=== PATIENT | female | born 1965 | race Caucasian/White ===

== ENCOUNTER → 2020-11-20 | Outpatient (CLI) | payer OTHER ==
[~2020-11-20] MED LIST: BIRTH CONTROL PILL PO; CLARITIN10 MG PO; IBUPROFEN 200200 M1 PO; OMEPRAZOLE 20 M20 M1 PO
[2020-11-20 14:23] LABS: ABSOLUTE NEUTROPHILS 4.5 thou/uL (1.4-8.2); BASOPHILS 0.6 % (0.0-2.0); EOSINOPHILS 5.3 % (0.0-3.0); HEMATOCRIT 38.9 % (37.0-47.0); LYMPHOCYTES 26.5 % (24.0-44.0); MCH 29.6 pg (26.0-34.0); MCHC 33.3 g/dL (28.0-37.0); MCV 88.6 fL (80.0-100.0); MONOCYTES 6.9 % (1.0-8.0); PLATELET COUNT 227 thou/uL (150-400); POLYS 60.7 % (36.0-66.0); RBC 4.39 mil/uL (4.20-5.00); RDW 13.2 % (10.5-14.5); WBC 7.4 thou/uL (4.0-11.0)
== END ==
LOC: LAB 11:50
PROVIDERS: ATTEND Orthopaedic Surgery
DX: M25.561 Pain in right knee (principal)

== ENCOUNTER → 2020-12-11 | Outpatient (CLI) | payer OTHER | LOC: NUC 12-07 12:25 | PROVIDERS: ATTEND Orthopaedic Surgery | DX: M25.561 Pain in right knee (principal); Z96.651 Presence of right artificial knee joint ==

== ENCOUNTER → 2021-04-19 | Outpatient (CLI) | payer OTHER ==
[~2021-04-19] MED LIST changes: +RHINOCORT ALL8.43 ML INH
[2021-04-19 13:15] LABS: HEMATOCRIT 40.6 % (37.0-47.0); HEMOGLOBIN 13.7 gm/dL (12.0-15.0); MCH 29.7 pg (26.0-34.0); MCHC 33.6 g/dL (28.0-37.0); MCV 88.4 fL (80.0-100.0); RBC 4.6 mil/uL (4.20-5.00); RDW 13.5 % (10.5-14.5); WBC 6.9 thou/uL (4.0-11.0)
[2021-04-19 13:28] LABS: ALBUMIN 3.9 g/dL (3.4-5.0); CALCIUM 8.6 mg/dL (8.5-10.1); CREATININE 0.9 mg/dL (0.6-1.0); INR 0.95; PROTIME 10.4 Seconds (10.5-12.1)
[2021-04-19 13:29] LABS: URINE BILIRUBIN NEGATIVE (Negative); URINE BLOOD NEGATIVE (Negative); URINE CLARITY CLEAR; URINE COLOR YELLOW; URINE GLUCOSE-RANDOM* NEGATIVE (Negative); URINE KETONES NEGATIVE (Negative); URINE LEUKOCYTES-REFLEX NEGATIVE (Negative); URINE NITRITE-REFLEX NEGATIVE (Negative); URINE PROTEIN (DIPSTICK) NEGATIVE (Negative); URINE UROBILINOGEN 0.2 E.U./dl (0.2-1.0)
--- NOTE | 2021-04-19 15:47 | EKG ---
[address] [place] [address] ELECTROCARDIOGRAM REPORT Name: TARAH SEVILLA Room #: REG PADMINI Mcnally#: [id number] Admission: 04/19/21 Attend Phys: Jose De Jesus Burt MD Discharge: Date of : 61 Report #: [id number] [facility] Test Date: 2021-04-19 Test Time: 12:55:30 Pat Name: TARAH SEVILLA Department: Room: Gender: F Desk Top Publisher: Tatyana PUENTE : 1965 Requested By: Jose De Jesus Burt Order Number: [id number] MD: Donnie Espinosa Measurements Intervals [place] Rate: 86 P: 57 DC: 136 QRS: -28 QRSD: 88 T: 36 QT: 366 QTc: 438 Interpretive Statements Sinus rhythm Borderline left axis deviation No previous ECG available for comparison Electronically Signed On 04-19-2021 15:47:11 CDT by Donnie Espinosa [email or web address] <ELECTRONICALLY SIGNED> By: Donnie Espinosa MD, [facility] 04/19/21 1547 1255 1255 Donnie Espinosa MD, FACC /EPI
== END ==
LOC: PAC 09:45
PROVIDERS: ATTEND Orthopaedic Surgery
DX: Z01.812 Encounter for preprocedural laboratory examination (principal); Z01.810 Encounter for preprocedural cardiovascular examination; Z96.651 Presence of right artificial knee joint; Z79.01 Long term (current) use of anticoagulants

== ENCOUNTER → 2021-06-05 | Outpatient (CLI) | payer OTHER ==
[2021-06-05 08:40] LABS: HEMOGLOBIN 13.5 gm/dL (12.0-15.0); MCH 30.4 pg (26.0-34.0); MCHC 34.7 g/dL (28.0-37.0); MCV 87.8 fL (80.0-100.0); RBC 4.45 mil/uL (4.20-5.00); RDW 13.1 % (10.5-14.5); WBC 6.8 thou/uL (4.0-11.0)
[2021-06-05 08:42] LABS: URINE BILIRUBIN NEGATIVE (Negative); URINE BLOOD TRACE (Negative); URINE CLARITY CLEAR; URINE COLOR YELLOW; URINE GLUCOSE-RANDOM* NEGATIVE (Negative); URINE KETONES NEGATIVE (Negative); URINE LEUKOCYTES-REFLEX NEGATIVE (Negative); URINE NITRITE-REFLEX NEGATIVE (Negative); URINE PROTEIN (DIPSTICK) NEGATIVE (Negative); URINE SPECIFIC GRAVITY 1.025 (1.005-1.035); URINE UROBILINOGEN 0.2 E.U./dl (0.2-1.0)
[2021-06-05 08:56] LABS: ALBUMIN 3.6 g/dL (3.4-5.0); CALCIUM 8.5 mg/dL (8.5-10.1); CREATININE 0.9 mg/dL (0.6-1.0); POTASSIUM 4.3 mmol/L (3.5-5.1)
[2021-06-05 09:15] LABS: INR 0.94; PROTIME 10.3 Seconds (10.5-12.1)
== END ==
LOC: PAC 07:48
PROVIDERS: ATTEND Orthopaedic Surgery
DX: Z01.812 Encounter for preprocedural laboratory examination (principal); Z96.651 Presence of right artificial knee joint; Z79.899 Other long term (current) drug therapy

== ENCOUNTER 2021-06-18 10:25 | Inpatient (IN) | payer OTHER ==
[~2021-06-18] VITALS: Ht 157.5 cm; Wt 90.7 kg
[2021-06-18 11:43] VITALS: BP 152/70
[2021-06-18 16:34] VITALS: BP 142/84
[2021-06-18 16:52] VITALS: BP 124/76
[2021-06-18 18:26] VITALS: BP 135/85
--- NOTE | 2021-06-18 18:30 | NUR ---
PT RECEIVED FROM THE [facility] AT 1630 VERY SLEEPY BUT EASILY AROUSABLE. DENIED PAIN OR NAUSEA. TOOK SIPS OF WATER. ADMISSION COMPLETED. DNSG DRY. ICE PACK ON. IV FLUIDS. FRIEND AT BEDSIDE.
[2021-06-18 19:21] VITALS: BP 138/77
--- NOTE | 2021-06-19 02:52 | NUR ---
PT CARE ASSUMED WITH PT IN BED SLEEPING.PT IS A/O X4.PT IS UP WITH X2 ASSIST.INCISION DRESSING ON RT KNEE I/C/D WITH POLAR PACK AND SALOMÓN DRESSING.PT PAIN MANAGED WITH NORCO AND SCHEDULE MORPHINE.FALL PRECAUTIONS IN PLAVE.IV ACCESS ON RT HAND WITH D5 0.45NS @100CC/HR.PT WAS ON 2L OF O2 NC AFTER SURGERY.WILL CONTINUE TO MONITOR PER POC
[2021-06-19 05:30] VITALS: BP 115/70
--- NOTE | 2021-06-19 07:30 | O ---
[facility] [place] [address] OPERATIVE REPORT Name: TARAH SEVILLA Room #: 447-P [facility] [place] M.R.#: [id number] Admission: 06/18/21 Attend Phys: Jose De Jesus Burt MD Discharge: Date of : 61 Report #: [id number] THIS REPORT FOR: cc: Korina Klein DNP, Mary E. DNP Abraham, Scott M. MD ~ DATE OF SERVICE: 06/18/2021 PREOPERATIVE DIAGNOSIS: Aseptic loosening, right total knee arthroplasty. POSTOPERATIVE DIAGNOSIS: Aseptic loosening, right total knee arthroplasty. PROCEDURE: Revision right total knee arthroplasty, all components. SURGEON: Jose De Jesus Burt MD. MECHANICAL ORDNANCE ASSEMBLER: Sherrie Mas PA-C. INDICATION FOR MECHANICAL ORDNANCE ASSEMBLER: Throughout the case, extensive retraction, manipulation of the knee was required. This was afforded to me by my state tested nursing assistant. ANESTHESIA: LMA with adductor canal block. IMPLANTS: [employer] size 4 revision Oxinium femur with a size 4 mm offset assistant director of public works and a 12 x 160 stem, a size 3 revision tibial baseplate with a size 4 mm offset assistant director of public works and a 12 x 160 stem and a size 13 constrained polyethylene and a 32 patella. TOURNIQUET TIME: 107 minutes. ESTIMATED BLOOD LOSS: 50 mL. COMPLICATIONS: None. SPECIMENS: Intraoperative frozen section was performed showing to have minimal neutrophils per high-power field as well as intraoperative cultures were taken and sent. CONDITION UPON LEAVING THE OR: Stable. INDICATIONS FOR PROCEDURE: The patient is a 55-year-old female who is about 3 years out from a right total knee arthroplasty. She has had increasing pain in her right knee and workup for infection was performed and was negative. Bone scan revealed increased uptake around the knee prosthesis and it was felt that she had an aseptic loosening. After discussion with her, she elected for revision right total knee arthroplasty. [address] [address] OPERATIVE REPORT Name: TARAH SEVILLA Thais Room #: 447-P [facility] [place] [facility]#: [id number] Admission: 06/18/21 Attend Phys: Jose De Jesus Burt MD Discharge: Date of : 61 Report #: [id number] DESCRIPTION OF PROCEDURE: Risks, benefits, alternatives, complications were discussed in detail with the patient including but not limited to risk of anesthesia, risk of damage to nerves, arteries, blood vessels, risk for infection, bleeding, risk for DVT, PE, and need for reoperation. Informed consent was obtained from the patient. Right knee was appropriately marked in the preoperative holding area. IV clindamycin was given for preoperative antibiotics. She was brought to the operating room and placed in supine position on the operating table. LMA anesthesia was induced without complication. Tourniquet was placed on the right thigh. Right lower extremity was prepped and draped in normal sterile fashion. Timeout was performed properly identifying the patient and procedure as well as the instrumentation and implants. All in the operating room in agreement. Right lower extremity was exsanguinated and tourniquet inflated. Tourniquet time was 107 minutes. The previous scar was used and this was opened with a 10-blade through the skin. Dissection was taken down sharply to the fascia and deep flaps were developed medially and laterally. Fresh 10-blade was used to make a medial parapatellar arthrotomy and cultures of the fluid were taken. The fluid did appear to be normal. Several tissue samples were taken from both medial, lateral and patellofemoral and these were sent for intraoperative frozen section. This came back as minimal white cells per high-power field, 5 cells were visualized in only one sample. It was felt given the preoperative workup and intraoperative findings, the likelihood of there being infection was low and so we decided to proceed with revision arthroplasty, polyethylene liner was removed. The medial and lateral gutters were reestablished. The femoral component was then dissected out using rigid curved osteotomes and this was removed rather easily. There was minimal bony ingrowth into the femoral component. Attention was turned to the tibia. Tibial component was removed with combination of flat and curved rigid osteotomes and this was then removed somewhat easily. The tibia and femur then sequentially reamed up to a size 12, at which point the size 12 reamer had good fit. Tibial resection guide was pinned in place and a cleanup cut was made on the tibia. Tibia was sized, found to fit best with the size 3 tibia with a 4 mm offset assistant director of public works in the 1:30 o'clock position. After this, the tibia was prepped for this configuration. Attention was turned to the femur. Femur was sized, found to be a size 4. This fit best with a 4 mm offset assistant director of public works in the 6 o'clock position. After this anterior, posterior and chamfer cuts were made. Box cut was made and this was trialed with a size 11 and then a size 13 constrained polyethylene. The size 13 demonstrated the best stability and range of motion both medially and laterally. After this, previous patellar component was removed with oscillating saw and a cleanup cut was made. A size 32 patellar trial button was placed. Knee was taken through range of motion, found to be stable, found to have good patellar tracking. Trial components were removed. Bone ends were thoroughly irrigated with normal saline. The final implants were [facility] [address] [place] [address] OPERATIVE REPORT Name: TARAH SEVILLA Room #: 447-P [facility] [place] [facility]#: [id number] Admission: 06/18/21 Attend Phys: Jose De Jesus Burt MD Discharge: Date of : 61 Report #: [id number] built on the back table and cement was mixed. Final implants were then cemented in place using standard cementation techniques. While the cement cured, a periarticular injection consisting of morphine, ropivacaine, epinephrine, Toradol was placed around the knee joint capsule. After the cement cured, tourniquet was deflated. Hemostasis was obtained with Bovie cautery. Final size 13 constrained polyethylene was placed. A gram of vancomycin was placed deep in the joint. The fascia was closed with 0 Vicryl, skin was closed with 2-0 Vicryl, skin staple and a SALOMÓN dressing was applied. The patient tolerated this procedure well and went to recovery room under care of anesthesia postoperatively. <ELECTRONICALLY SIGNED> By: Jose De Jesus Burt MD 06/19/21 0730 1415 1720 Jose De Jesus Burt MD /nt
[2021-06-19 08:36] VITALS: BP 114/56
--- NOTE | 2021-06-19 11:25 | NUR ---
ASSUMED PT CARE THIS AM. PT IS ALERT & ORIENTED X4. PT HAS IV SITE ON R HAND RUNNING D5 1/2 NS @ 100ML/HR. PT IS UP WITH ASSIST X1 WITH GAITBELT AND WALKER TO THE BEDSIDE COMMODE. PT HAS BILATERAL KNEE HIGH VINCENT QUAN, [facility], SCD. PHYSICAL THERAPY WAS WORKING WITH PT THIS AM. PT C/O OF PAIN AND GIVEN PAIN MEDICATION PER PT REQUEST. PT IS ON ROOM AIR. NO C/O OF NAUSEA AND VOMITING THIS AM. WILL CONTINUE TO MONITOR PT. FOLLOW POC.
--- NOTE | 2021-06-19 14:18 | NUR ---
ASSESSMENT: CM REVIEWED CHART AND SPOKE WITH PATIENT AT THE BEDSIDE. PT IS ALERT AND ORIENTED X4. PT IS S/P RIGHT TKA. PT REPORTS LIVING IN A HOUSE ALONE. PT REPORTS HAVING ONE STEP TO ENTER AND NO STEPS ONCE INSIDE. PT REPORTS THAT SHE HAS A CANE AND WALKER AT HOME TO ASSIST WITH AMBULATION. PT DENIES HAVING ANY HX OF HH OR SNF. PT ANTICIPATES TO DO OUTPATIENT THERAPY HERE AT [facility]. PT IS HAVING PAIN TODAY AND LIKELY DISCHARGE HOME TOMORROW. PT REPORTS HAVING A GOOD FRIEND SUPPORT SYSTEM THAT WILL BE ABLE TO TAKE HER TO AND FROM THERAPY. CM WILL CONTINUE TO FOLLOW TO ASSIST NEEDED. PT DOES NOT ANTICIPATE ANY NEEDS FROM CM.
[2021-06-19 15:46] VITALS: BP 114/58
[2021-06-19 20:01] VITALS: BP 124/64
--- NOTE | 2021-06-20 02:59 | NUR ---
Cuca care of pt at 1900. bedside report recieved. DANIELLE assessment complete. Pt has hussein drsg to R knee, wrapped with zahraa, polar pack, noe hose and scds. Pt c/o 4/10 R knee pain. scheduled morphine given. R hand PIV patent and secure. assisted pt to bathroom with supervision, walker, and gait belt. pt is wbat. Assisted pt c repositioning. no other needs at this time, call light in reach.
[2021-06-20 08:35] VITALS: BP 137/69
--- NOTE | 2021-06-20 10:02 | NUR ---
ASSUMED PT CARE THIS AM. PT IS UP WITH STAND BY ASSIST TO BE THE BATHROOM. PT HYAS IV SITE ON R HAND. PT HAS POLAR CARE, BILATERAL VINCENT GLASS, SCD, SALOMÓN DRESSING. PT IS ON ROOM AIR. NO C/O OF NAUSEA AND VOMITING. PER PT OK FOR DC. WILL CONTINUE TO MONITOR PT. FOLLOW POC.
[2021-06-20 10:21] VITALS: BP 137/69
--- NOTE | 2021-06-20 12:07 | PATH ---
[facility] [address] [place] [address] PATHOLOGY RPT PROCEDURE Name: TARAH SEVILLA Room #: 447-P ADM IN M.R.#: [id number] Admission: 06/18/21 Date of : 61 Discharge: Report #: [id number] Path Case #: [id number] [facility] Accession Number: [id number] . 01 Material submitted: . knee - RIGHT KNEE SYNOVIAL TISSUE - F.S.. Modifiers: right . 01 Clinical history: . PRESENCE OF RIGHT ARTIFICIAL KNEE JOINT . 02 Frozen section diagnosis: . FROZEN SECTION DIAGNOSIS: (Aura Chin M.D.): FSA1. Right knee synovium, biopsy: - One focus with up to 5 neutrophils in one fragment. - Remainder fragments showing fibrinoid degeneration and chronic inflammation. - Clinical correlation suggested. . These findings are discussed with Dr. Jose De Jesus Burt in OR2 at [facility] and a written report is placed in the patient's chart. . Frozen section performed at [facility], [address] [place] [address]. . . FROZEN SECTION GROSS DESCRIPTION: The specimen is received fresh from the OR labeled with the patient's name, and "right knee synovial tissue for frozen section" consists of multiple fragments of firm, white-guzman tissue measuring an aggregate of 3.5 x 2.5 x 1.0 cm. The white shiny synovial surface is shaved and submitted for frozen section as FSA1. This is subsequently submitted for permanent section as A1. The unfrozen tissue is submitted in entirety for permanent sections only in A2, A3 and A4. (IUV/db; 06/18/2021) IZV/LBQ . 02 Diagnosis: Synovium, right knee synovial tissue, total knee revision: - Moderate chronic inflammation with giant cell reaction, focal calcifications, as well as reparative changes. - Reactive synovial hyperplasia. - Negative for marked acute inflammation (none greater than 5 neutrophils/hpf). (IUV:pit; 06/19/2021) QTP 06/19/2021 1448 Local . [address] [address] PATHOLOGY RPT PROCEDURE Name: TARAH SEVILLA Room #: 447-P ADM IN M.R.#: [id number] Admission: 06/18/21 Date of : 61 Discharge: Report #: [id number] Path Case #: [id number] Electronically signed: . Aura Chin MD, Pathologist NPI- [id number] . 01 Gross description: . SEE FROZEN SECTION GROSS DESCRIPTION. . The specimen is entirely submitted as follows: A1: Frozen section A1 A2-A3: Frozen section A2 A4: Frozen section A3 A5: Frozen section A4 (MRF; 06/18/2021) MFE/MFE 06/18/2021 1632 Local . 02 Pathologist provided ICD-10: M65.9 . 02 CPT . 286643, [id number] Specimen Comment: A courtesy copy of this report has been sent to [phone] Specimen Comment: [phone] Specimen Comment: Report sent to / DR MARTIN Specimen Comment: A duplicate report has been generated due to demographic updates. Performed at: [address] [id number] MD Gerardo Bowling MD Phone: [phone] Performed at: [address] [id number] MD Aura Chin MD Phone: [phone]
--- NOTE | 2021-06-20 12:52 | NUR ---
on-going assessment: CM REVIEWED CHART. PER PHYSICAL THERAPY NOTES PATIENT IS SAFE FOR HOME TODAY. PT ALREADY HAS EQUIPMENT NEEDED AT HOME AND OUTPATIENT THERAPY ARRANGED. PT WILL HAVE NO NEEDS FROM CM. ANTICIPATE DISCHARGE HOME TODAY.
--- NOTE | 2021-06-20 12:53 | NUR ---
ON-GOING assessment: CM REVIEWED CHART. PT REMAINS ON IV ANBX, CULTURES ARE STILL PENDING. PLANS ARE FOR PATIENT TO DISCHARGE HOME ONCE MEDICALLY STABLE AND DOES NOT ANTICIPATE ANY NEEDS FROM CM.
== END 2021-06-20 15:04 | disposition home or self-care (01) | DRG 468 ==
LOC: OR 10:25 → TBA 10:29 → OR 11:12 → 4S 16:25 → OR 16:28 → 4S 21:02
PROVIDERS: ADMIT Orthopaedic Surgery; ATTEND Orthopaedic Surgery
PROC: 0SRC069 Replacement of Right Knee Joint with Oxidized Zirconium on Polyethylene Synthetic Substitute, Cemented, Open Approach (ICD-10-PCS; principal; 2021-06-18)
PROC: 0SPC0JZ Removal of Synthetic Substitute from Right Knee Joint, Open Approach (ICD-10-PCS; principal; 2021-06-18)
DX: T84.032A Mechanical loosening of internal right knee prosthetic joint, initial encounter (principal); E66.9 Obesity, unspecified; K21.9 Gastro-esophageal reflux disease without esophagitis; Y83.8 Other surgical procedures as the cause of abnormal reaction of the patient, or of later complication, without mention of misadventure at the time of the procedure; Z20.822 Contact with and (suspected) exposure to COVID-19; Y92.89 Other specified places as the place of occurrence of the external cause; Z88.1 Allergy status to other antibiotic agents; Z91.040 Latex allergy status; Z88.5 Allergy status to narcotic agent; Z88.0 Allergy status to penicillin; Z91.048 Other nonmedicinal substance allergy status; Z68.36 Body mass index [BMI] 36.0-36.9, adult
CPT/HCPCS: 10102; 50010; 50101; 50415; 50954; 51130; 51225; 51320; 51412; 52282; 53000; 53078; 56528; 57095; 57103; 57116; 57180; 57982; 57985; 58138; 58601; 58974; 58975; 58976; 62110; 62900; 64039; 70005

== ENCOUNTER → 2021-09-05 | Outpatient (CLI) | payer OTHER | LOC: HYPER 07:55 | PROVIDERS: ATTEND Emergency Medicine | DX: T81.31XD Disruption of external operation (surgical) wound, not elsewhere classified, subsequent encounter (principal); L97.812 Non-pressure chronic ulcer of other part of right lower leg with fat layer exposed; R60.0 Localized edema; E66.9 Obesity, unspecified; M25.561 Pain in right knee; K21.9 Gastro-esophageal reflux disease without esophagitis; Z96.651 Presence of right artificial knee joint; Z68.41 Body mass index [BMI] 40.0-44.9, adult; Y83.8 Other surgical procedures as the cause of abnormal reaction of the patient, or of later complication, without mention of misadventure at the time of the procedure ==

== ENCOUNTER → 2021-09-19 | Outpatient (CLI) | payer OTHER | LOC: HYPER 07:45 | PROVIDERS: ATTEND Emergency Medicine | DX: T81.31XD Disruption of external operation (surgical) wound, not elsewhere classified, subsequent encounter (principal); L97.812 Non-pressure chronic ulcer of other part of right lower leg with fat layer exposed; R60.0 Localized edema; E66.9 Obesity, unspecified; M25.561 Pain in right knee; K21.9 Gastro-esophageal reflux disease without esophagitis; Z96.651 Presence of right artificial knee joint; Z68.41 Body mass index [BMI] 40.0-44.9, adult; Y83.8 Other surgical procedures as the cause of abnormal reaction of the patient, or of later complication, without mention of misadventure at the time of the procedure ==

== ENCOUNTER → 2021-10-03 | Outpatient (CLI) | payer OTHER | LOC: HYPER 07:50 | PROVIDERS: ATTEND Emergency Medicine | DX: T81.31XD Disruption of external operation (surgical) wound, not elsewhere classified, subsequent encounter (principal); L97.812 Non-pressure chronic ulcer of other part of right lower leg with fat layer exposed; M25.561 Pain in right knee; R60.0 Localized edema; E66.9 Obesity, unspecified; Z68.41 Body mass index [BMI] 40.0-44.9, adult; Z79.899 Other long term (current) drug therapy; Y83.8 Other surgical procedures as the cause of abnormal reaction of the patient, or of later complication, without mention of misadventure at the time of the procedure ==

== ENCOUNTER → 2021-10-17 | Outpatient (CLI) | payer OTHER | LOC: HYPER 07:47 | PROVIDERS: ATTEND Emergency Medicine | DX: T81.31XD Disruption of external operation (surgical) wound, not elsewhere classified, subsequent encounter (principal); L97.812 Non-pressure chronic ulcer of other part of right lower leg with fat layer exposed; M25.561 Pain in right knee; R60.0 Localized edema; E66.9 Obesity, unspecified; Z79.899 Other long term (current) drug therapy; Y83.8 Other surgical procedures as the cause of abnormal reaction of the patient, or of later complication, without mention of misadventure at the time of the procedure ==

== ENCOUNTER → 2021-11-12 | Outpatient (CLI) | payer OTHER | LOC: MRI 09:27 | PROVIDERS: ATTEND Physical Medicine & Rehabilitation Sports Medicine | DX: S93.492A Sprain of other ligament of left ankle, initial encounter (principal); S93.692A Other sprain of left foot, initial encounter; M79.672 Pain in left foot; X58.XXXA Exposure to other specified factors, initial encounter; Y93.89 Activity, other specified; Y92.89 Other specified places as the place of occurrence of the external cause; Y99.8 Other external cause status ==